=== PATIENT | male | born 1990 | race Caucasian/White ===

== ENCOUNTER 2017-02-14 14:20 | Emergency (ER) | payer MEDICAID, OTHER, SELFPAY ==
[~2017-02-14] VITALS: Ht 177.8 cm; Wt 76.0 kg
[2017-02-14 14:26] VITALS: BP 154/81
[2017-02-14] MEDS ORDERED: DIPH,PERTUSS(ACELL),TET VAC/PF 0.5 ML IM-VACC ONE ×2 (14:47→15:00)
[2017-02-14] MEDS ORDERED: LIDOCAINE 1%, 20ML ONE (14:47)
[2017-02-14] MEDS ORDERED: LIDOCAINE 1%, 20ML SQ ONE (15:00)
[2017-02-14] MEDS ORDERED: BACITRACIN ZINC OINT 500U/GM, 0.9 GM ONE (16:07)
== END 2017-02-14 16:14 | disposition home or self-care (01) ==
LOC: ED 15:55
DX: S10.1 Other and unspecified superficial injuries of throat (principal); S50.811A Abrasion of right forearm, initial encounter; W54.0XXA Bitten by dog, initial encounter; Y93.89 Activity, other specified; Y99.8 Other external cause status; Y92.009 Unspecified place in unspecified non-institutional (private) residence as the place of occurrence of the external cause
CPT/HCPCS: 12011; 90471; 90715

== ENCOUNTER 2017-02-21 16:24 | Emergency (ER) | payer MEDICAID ==
[~2017-02-21] VITALS: Ht 177.8 cm; Wt 77.7 kg
[2017-02-21 16:26] VITALS: BP 121/76
== END 2017-02-21 16:41 | disposition home or self-care (01) ==
LOC: ED 16:40
DX: S01.81XD Laceration without foreign body of other part of head, subsequent encounter (principal); X58.XXXD Exposure to other specified factors, subsequent encounter; Y92.89 Other specified places as the place of occurrence of the external cause; Y99.8 Other external cause status
CPT/HCPCS: 99281

== ENCOUNTER 2017-02-26 00:10 | Emergency (ER) | payer MEDICAID ==
[~2017-02-26] VITALS: Ht 177.8 cm; Wt 76.9 kg
[2017-02-26 00:12] VITALS: BP 160/83
== END 2017-02-26 01:27 | disposition home or self-care (01) ==
LOC: ED 01:21
DX: S62.325A Displaced fracture of shaft of fourth metacarpal bone, left hand, initial encounter for closed fracture (principal); S62.335A Displaced fracture of neck of fourth metacarpal bone, left hand, initial encounter for closed fracture; X58.XXXA Exposure to other specified factors, initial encounter; Y93.89 Activity, other specified; Y92.410 Unspecified street and highway as the place of occurrence of the external cause; Y99.8 Other external cause status
CPT/HCPCS: 29125

== ENCOUNTER 2017-06-18 23:28 | Emergency (ER) | payer MEDICAID ==
[~2017-06-18] VITALS: Ht 177.8 cm; Wt 73.3 kg
[2017-06-18 23:35] VITALS: BP 140/80
[2017-06-19] MEDS ORDERED: MAALOX/HYOSCYAMINE/LIDOCAINE 45 ML BTL PO ONE
[2017-06-19] MEDS ORDERED: MAALOX/HYOSCYAMINE/LIDOCAINE 45 ML BTL ONE (00:09)
[2017-06-19 00:12] LABS: HEMATOCRIT 45.3 % (39.2-51.8); HEMOGLOBIN 15.5 g/dL (13.7-18.0); WHITE BLOOD COUNT 11.5 x10^3/uL (3.4-10)
[2017-06-19 00:22] LABS: BLOOD UREA NITROGEN 23 mg/dL (7-18)
[2017-06-19 00:27] LABS: IS PT STATUS REG ER OR PRE ER? YES
== END 2017-06-19 01:03 | disposition home or self-care (01) ==
LOC: ED 23:59
DX: R07.89 Other chest pain (principal)
CPT/HCPCS: 36415; 71020; 80048; 82040; 84484; 85025; 93005; 99285

== ENCOUNTER 2017-09-17 19:02 | Emergency (ER) | payer MEDICAID ==
[~2017-09-17] VITALS: Ht 180.3 cm; Wt 73.0 kg
[2017-09-17] MEDS ORDERED: HYDROmorphone 2 MG/ML, 1ML ONE ×3 (19:08→20:36)
[2017-09-17] MEDS ORDERED: ONDANSETRON 2MG/ML, 2ML ONE (19:09)
[2017-09-17] MEDS: HYDROmorphone 1 MG/ML, 1ML IVPush PRN ×4 (19:10→19:50)
[2017-09-17] MEDS ORDERED: SODIUM CHLORIDE 0.9% 1,000ML IVBOLUS ONE (19:30)
[2017-09-17] MEDS ORDERED: ONDANSETRON 2MG/ML, 2ML IVPush ONE (19:30)
[2017-09-17] MEDS ORDERED: SODIUM CHLORIDE FLUSH 10ML SYR IVF ONE (19:30)
[2017-09-17] MEDS ORDERED: BACITRACIN ZINC OINT 500U/GM, 0.9 GM ONE (19:34)
[2017-09-17 19:44] LABS: BASOPHILS # (AUTO) 0.04 x10^3/uL (0-0.1); BASOPHILS % (AUTO) 0 % (0-1); EOSINOPHILS # (AUTO) 0.06 x10^3/uL (0-0.4); EOSINOPHILS % (AUTO) 1 % (1-7); LYMPHOCYTES # (AUTO) 3.69 x10^3/uL (1-3.4); LYMPHOCYTES % (AUTO) 35 % (22-44); MD NO; MEAN CORPUSCULAR HEMOGLOBIN 31.9 pg (27.5-34.5); MEAN CORPUSCULAR HGB CONC 34.3 g/dL (33.2-36.2); MEAN PLATELET VOLUME 7.4 fL (7.4-10.4); MONOCYTES # (AUTO) 0.81 x10^3/uL (0.2-0.8); MONOCYTES % (AUTO) 8 % (2-9); NEUTROPHILS # (AUTO) 5.88 x10^3/uL (1.8-6.8); NEUTROPHILS % (AUTO) 56 % (42-75); PLATELET COUNT 323 x10^3/uL (130-400); RED BLOOD COUNT 4.78 x10^6/uL (4.38-5.82); RED CELL DISTRIBUTION WIDTH 13.1 % (9.4-14.8)
[2017-09-17 19:52] LABS: ALBUMIN 3.7 g/dL (3.4-5.0); ANION GAP 9 mmol/L (5-15); CALCIUM 8.2 mg/dL (8.5-10.1); CHLORIDE 106 mmol/L (98-107); CREATININE 1.51 mg/dL (0.7-1.3)
[2017-09-17 20:42] VITALS: BP 144/87
[2017-09-17] MEDS ORDERED: HYDROmorphone 1 MG/ML, 1ML IVPush PRN (21:00)
== END 2017-09-17 20:46 ==
LOC: ED 19:34
DX: T20.26XA Burn of second degree of forehead and cheek, initial encounter (principal); T23.291A Burn of second degree of multiple sites of right wrist and hand, initial encounter; T31.0 Burns involving less than 10% of body surface; F17.200 Nicotine dependence, unspecified, uncomplicated; Z88.0 Allergy status to penicillin; X08.8XXA Exposure to other specified smoke, fire and flames, initial encounter; Y93.89 Activity, other specified; Y92.009 Unspecified place in unspecified non-institutional (private) residence as the place of occurrence of the external cause; Y99.8 Other external cause status
CPT/HCPCS: 36415; 71045; 80048; 82040; 85025; 96374; 96375; 96376; 99291; J1170; J2405; J7030